=== PATIENT | female | born 1960 | race Caucasian/White ===

== ENCOUNTER 2021-06-08 07:19 | Emergency (ER) | payer MEDICAID ==
[~2021-06-08] VITALS: Ht 172.7 cm; Wt 72.7 kg
[2021-06-08 07:46] VITALS: BP 123/83
[2021-06-08] MEDS ORDERED: ALBU6.7H9 INH (08:12)
[2021-06-08] MEDS ORDERED: BUDE90AE IH (08:33)
[2021-06-08] MEDS ORDERED: AZIT500T PO (08:33)
== END 2021-06-08 09:14 | disposition home or self-care (01) ==
LOC: ER 07:20
DX: U07.1 COVID-19 (principal); J12.82 Pneumonia due to coronavirus disease 2019
CPT/HCPCS: 71045; 99283

== ENCOUNTER 2024-05-03 08:20 | Emergency (ER) | payer BC, MEDICAID ==
[~2024-05-03] VITALS: Ht 170.2 cm; Wt 84.1 kg
[~2024-05-03 08:20] MED LIST: ALBU6.7H14 INH; BUDE90AE IH
[2024-05-03 09:22] LABS: BASOPHILS % (AUTO) 0.6 % (0-1); EOSINOPHILS # (AUTO) 0.5 X10'3 (0-0.9); HEMATOCRIT 43.2 % (35.0-45.0); LYMPHOCYTES # (AUTO) 2.1 X10'3 (1.1-4.8); LYMPHOCYTES % (AUTO) 29.6 % (21-51); MEAN CORPUSCULAR HEMOGLOBIN 33.2 PG (27.0-31.0); MEAN CORPUSCULAR HGB CONC 34.8 g/dL (33.0-36.5); MEAN CORPUSCULAR VOLUME 95.5 FL (78-98); MEAN PLATELET VOLUME 8.5 FL (7.4-10.4); MONOCYTES # (AUTO) 0.5 X10'3 (0-0.9); NEUTROPHILS # (AUTO) 3.9 X10'3 (1.8-7.7); NEUTROPHILS % (AUTO) 55.8 % (42-75); PLATELET COUNT 216 X10'3 (140-440); RED BLOOD COUNT 4.53 X10'6 (4.20-5.60); RED CELL DISTRIBUTION WIDTH 13.3 % (11.5-14.5); WHITE BLOOD COUNT 7.1 X10'3 (4.5-11.0)
[2024-05-03 09:35] LABS: ALBUMIN 3.9 G/DL (3.4-5.0); ANION GAP 9 (8-16); BLOOD UREA NITROGEN 13 MG/DL (7-18); BUN/CREATININE RATIO 16.3 (10.0-20.0); CALCIUM 9.2 MG/DL (8.5-10.1); CHLORIDE 107 MMOL/L (99-107); GLUCOSE 234 MG/DL (70-104); PRO BRAIN NATRIURETIC PEPTIDE 60 PG/ML (0-125); SODIUM 139 MMOL/L (135-145); TOTAL CARBON DIOXIDE 22.7 MMOL/L (24-32); eCRCL 70 ML/MIN; eGFR 72 ML/MIN
[2024-05-03] MEDS ORDERED: METF-1203 PO (12:00)
[2024-05-03 12:30] VITALS: BP 161/103; PULSE 66; RESP 16; O2SAT 98
== END 2024-05-03 12:44 | disposition home or self-care (01) ==
LOC: ER 08:21
DX: R73.9 Hyperglycemia, unspecified (principal); R07.89 Other chest pain; Z79.899 Other long term (current) drug therapy
CPT/HCPCS: 36415; 71045; 80048; 83880; 84484; 85025; 93005; 99285